=== PATIENT | female | born 1980 | race Caucasian/White ===

== ENCOUNTER → 2016-05-22 | Outpatient (CLI) | payer MEDICARE, MEDICAID ==
[~2016-05-22] MED LIST: ALEVE220 MG PO; CELEXA40 MG PO; COLACE100 MG PO; DESYREL50 MG PO; NEURONTIN600 MG PO; NORCO 5-325 MG1 TAB PO; PERCOCET 5-3251 EACH PO
--- NOTE | ~2016-05-22 | NDGEN ---
PATIENT'S NAME: ALYSON PASTOR [facility] AGE: 35 [address] ROOM: [place] [address] LOCATION: [facility] ADMIT DATE: 05/22/2016 Neuro[facility]ostics DISCHARGE DATE: FAMILY PHYSICIAN: Ryan Rodríguez MD ATTENDING PHYSICIAN: Mirtha Gamino PROCEDURE: ELECTROENCEPHALOGRAM DATE OF PROCEDURE: 05/22/2016 TEST: TECH: CLINICAL DIAGNOSIS: DURATION OF EE minutes. REASON FOR EEG: Rule out seizures. CLINICAL HISTORY: The patient is a 35-year-old female, who is having an EEG for evaluation for a possibility of seizures. EEG FINDINGS: The patient is awake for majority of the EEG. During the awake portions of EEG an 11-12 Hz background is seen in the posterior head regions which is symmetrical and waxing and waning. The patient's EEG is somewhat limited by excessive EMG/movement artifact. Activation procedures included photic stimulation between 3-30 Hz, which did not show any abnormalities. CLASSIFICATION: Normal awake drowsy 10/20 scalp electrodes. IMPRESSION: This EEG is within normal limits. No epileptiform discharges or EEG seizures were seen during this recording. MD HERBERT ROJAS/viry /[id number] dtt: 05/28/16 [id number] GRICELDA RAM MOHAN R. dtd: 05/25/16 1401
== END | disposition disaster alternative care site (69) ==
LOC: GRAD 08:13
PROVIDERS: Psychiatry & Neurology Neurology
DX: G54.6 Phantom limb syndrome with pain (principal); M47.812 Spondylosis without myelopathy or radiculopathy, cervical region; M48.02 Spinal stenosis, cervical region; M25.78 Osteophyte, vertebrae; R20.9 Unspecified disturbances of skin sensation; R51 Headache; Z98.1 Arthrodesis status; Z98.890 Other specified postprocedural states